=== PATIENT | male | born 1960 | race Caucasian/White ===

== ENCOUNTER 2016-03-07 20:07 | Emergency (ER) | payer SELFPAY ==
[~2016-03-07] VITALS: Ht 175.3 cm; Wt 68.2 kg
[~2016-03-07 20:07] MED LIST: DICL75 PO; META800 PO; Z.0.NO CURRENT MEDS
[2016-03-07 20:10] VITALS: BP_SYST 191; BP_SYST 202; BP_DIAS 112; BP_DIAS 119; PULSE 82; RESP 16; TEMP 97.9; O2SAT 100
[2016-03-08] MEDS ORDERED: cloNIDine HCL 0.1 MG TAB PO ONE (02:45)
[2016-03-08] MEDS ORDERED: CLINDAMYCIN INJ 900 MG in SODIUM CHLORIDE 0.9% INJ 100 ML IV ONE (02:45)
[2016-03-08] MEDS ORDERED: KETOROLAC TROMETHAMINE 30 MG/ML (IVP) VIAL IV PUSH ONE (02:45)
[2016-03-08 03:16] VITALS: BP 179/117
[2016-03-08] MEDS ORDERED: CLIN1CAP5 PO (03:48)
[2016-03-08] MEDS ORDERED: BACT2OIN TOPICAL (03:48)
--- NOTE | 2016-03-08 03:51 | PD ---
HPI Chief Complaint: Facial Pain or Swelling Time Seen by Provider: 02:45 Travel History International Travel<30 days: No Contact w/Intl Traveler<30days: Success of Country Traveled to: [place] Traveled to known affect area: No History of Present Illness HPI 55-year-old male with swelling of the chin for the past week with scabs and pustules of the chin over the past 3 weeks. No fever no chills. No difficulty with swallowing. No change in appetite. No trismus. Patient is not diabetic. PFSH Past Surgical History Abdominal Surgery: Yes (HERNIA REPAIR) Eye Surgery: Yes Genitourinary Surgery: Yes (VASECTOMY) Social History Alcohol Use: Yes (OCCASSIONAL) Tobacco Use: No Substance Use: No Allergies-Medications (Allergen,Severity, Reaction): Coded Allergies: No Known Allergies (Verified , 03/07/16) Reported Meds & Prescriptions Reported Meds & Active Scripts Active Bactroban Topical (Mupirocin) 2% Oint 1 Appl TOPICAL BID 7 Days Clindamycin (Clindamycin HCl) 150 Mg Cap 300 Mg PO Q6H [address] (Diclofenac Sod) 75 Mg Tab 75 Mg PO BIDPRN Skelaxin (Metaxalone) 800 Mg Tab 800 Mg PO TIDPRN FOR MUSCLE RELAXATION Reported No Current Meds (Miscellaneous Medication) Misc Review of Systems Except as stated in HPI: all other systems reviewed are Neg General / Constitutional: No: Fever, Chills HENT: No: Congestion, Neck Pain, Masses Cardiovascular: No: Chest Pain or Discomfort Gastrointestinal: No: Nausea, Vomiting Genitourinary: No: Frequency, Dysuria, Decreased Urinary Output Musculoskeletal: No: Myalgias, Arthralgias Skin: Positive Rash, Positive Lumps Neurologic: No: Weakness, Dizziness Psychiatric: No: Anxiety Hematologic/Lymphatic: No: Easy Bruising, Lymph Node Enlargement Physical Exam Narrative GENERAL: Well-developed well-nourished male in no acute distress no respiratory distress SKIN: Warm and dry. Attention chin with erythema induration tenderness and 2-3 intact pustules in the associated area no submandibular tenderness mass lymphadenopathy or deviation of the midline. HEAD: Normocephalic. EYES: No scleral icterus. No injection or drainage. ENT mucous membranes moist airway is patent no trismus no intraoral mass or fluctuance. NECK: Supple, trachea midline. No JVD or lymphadenopathy. CARDIOVASCULAR: Regular rate and rhythm without murmurs, gallops, or rubs. RESPIRATORY: Breath sounds equal bilaterally. No accessory muscle use. GASTROINTESTINAL: Abdomen soft, non-tender, nondistended. MUSCULOSKELETAL: No cyanosis, or edema. BACK: Nontender without obvious deformity. No CVA tenderness. Data Data Last Documented VS Vital Signs Date Time Temp Pulse Resp B/P Pulse Ox O2 Delivery O2 Flow Rate FiO2 03/08/16 03:16 179/117 03/07/16 20:10 97.9 82 16 100 Orders Clindamycin Inj (Cleocin Inj) (03/08/16 02:45) Clonidine (Catapres) (03/08/16 02:45) Ketorolac Inj (Toradol Inj) (03/08/16 02:45) MDM Medical Decision Making Medical Screen Exam Complete: Yes Emergency Medical Condition: Yes Medical Record Reviewed: Yes Differential Diagnosis Cellulitis abscess folliculitis impetigo dental abscess; also to consider Austin 's angina Narrative Course Patient with soft tissue swelling of the chin with mild erythema and induration nonfluctuant with small areas of pustular lesions without drainage; no submandibular soft tissue swelling no midline swelling and no induration; patient administered IV antibiotic and is stable for outpatient management with oral antibiotic and Bactroban. Symptoms have been gradually worsening over the past week but has had scabbing of the chin and mouth over the past 3 weeks. Patient denies fever or chills. Patient is not diabetic. Patient administered clonidine for hypertension. Patient states he does not have hypertension and does not need antihypertensive medication Patient stable for discharge noted to have some decrease in blood pressure does not want any blood pressure medication is aware of risk of untreated hypertension Diagnosis Primary Impression: Facial cellulitis Referrals: Primary Care Physician 2 days Patient Instructions: General Instructions Additional Instructions: Complete course of antibiotic as prescribed Follow-up with your primary care physician Monitor blood pressures and if remain greater than 140/91 need to be started on high blood pressure medication Return to the emergency department for any concerns or change in condition Med/Other Pt SpecificInfo: Prescription(s) given Scripts Mupirocin Topical (Bactroban Topical)2% Oint1 Appl TOPICAL BID 7 Days Ref 0 Prov:Jennifer Raygoza MD 1/3/17 Clindamycin 150 Mg Prf372 Mg PO Q6H 7 Days Ref 0 Prov:Jennifer Raygoza MD 03/08/16 Disposition: 01 DISCHARGE HOME Condition: Stable Jennifer Raygoza MD Mar 08, 2016 03:51
== END 2016-03-08 03:59 | disposition home or self-care (01) ==
LOC: NEPC 20:07
DX: L03.211 Cellulitis of face (principal); R23.4 Changes in skin texture; I10 Essential (primary) hypertension
CPT/HCPCS: 96374; 96375; 99283; J1885